=== PATIENT | female | born 1995 | race Caucasian/White ===

== ENCOUNTER 2019-10-04 18:07 | Inpatient (IN) | payer BC, OTHER ==
[~2019-10-04 18:07] MED LIST: Iopamidol 370 76% 100 ML VIAL ONE
[2019-10-04] MEDS ORDERED: Ibuprofen 800 MG TAB ONE (18:16)
[2019-10-04] MEDS ORDERED: Acetaminophen 500 MG TAB ONE ×2 (18:16→18:46)
--- NOTE | 2019-10-04 19:28 | RAD ---
Chest AP view INDICATION: Fever cough and difficulty breathing COMPARISON: None FINDINGS: Lungs: There is rounded airspace consolidation within the right lower lung suspicious for pneumonia. Left lung is clear. Cardiac silhouette: The cardiomediastinal silhouette appears within normal limits. Pulmonary vasculature: Normal Pleural spaces: No pleural effusion or pneumothorax is demonstrated. Upper abdomen: No abnormality seen. Osseous structures: No acute osseous abnormality. Additional findings: None. IMPRESSION: Findings suspicious for right lower lobe pneumonia. Two-view chest radiograph may be helpful for impr ida localization. Recommend radiographic follow-up to resolution.
[2019-10-04] MEDS ORDERED: Azithromycin 500 MG VIAL ONE (20:01)
[2019-10-04] MEDS ORDERED: cefTRIAXone\\ROCEPHIN 2 GM VIAL ONE (20:01)
[2019-10-04] MEDS ORDERED: Sodium Chloride 0.9% 100 ML ONE (20:01)
[2019-10-04 20:31] LABS: Hemoglobin 13.2 g/dL (12.0-16.0); Mean Corpuscular HGB CONC 35.3 g/dL (32.0-36.0); Mean Corpuscular Hemoglobin 31.2 pg (27.0-31.0); Mean Corpuscular Volume 88.2 fL (78.0-98.0); Mean Platelet Volume 7.9 fL (7.4-10.4); Platelet Count 193 thou/uL (130-400); RBC Distribution Width 11.4 % (11.5-14.5); Red Blood Cell (RBC) Count 4.24 mill/uL (4.20-5.40); White Blood Cell (WBC) Count 27.5 thou/uL (4.8-10.8)
[2019-10-04 20:36] LABS: Bilirubin Negative (Negative); Blood, Urine Negative (Negative); Clarity Clear (Clear); Glucose, Urine (Dipstick) Normal (Negative); Ketone, Urine 80 mg/dL (Negative); Leukocyte Negative Leu/uL (Negative); Nitrite Negative (Negative); Protein, Urine (Dipstick) 20 mg/dL (Neg-Trace); Specific Gravity, Urine 1.018 (1.002-1.036); Urobilinogen Normal mg/dL (Less than 2)
[2019-10-04 20:51] LABS: BHCG - Serum Negative (NEGATIVE); Pregs Control Background? CLEAR/WHITE (CLR/WHITE); Pregs Control Bar Appear? YES (CONTROL BAR)
[2019-10-04 20:52] LABS: ALT (SGPT) 11 U/L (8-55); AST (SGOT) 14 U/L (5-34); Alkaline Phosphatase 62 U/L (40-110); Anion Gap 12 mmol/L (10-20); BUN (Urea Nitrogen) 8 mg/dL (7.0-18.7); Bilirubin, Total 0.8 mg/dL (0.2-1.2); CK (CPK) 33 U/L (29-168); Calc. Creatinine Clearance 0 mL/min (70-130); Calcium 9.5 mg/dL (7.8-10.44); Carbon Dioxide 21 mmol/L (22-29); Chloride 104 mmol/L (98-107); Estimated GFR-MDRD 78; Globulin 3.4 g/dL (2.4-3.5); Glucose 111 mg/dL (70-105); Potassium 3.1 mmol/L (3.5-5.1); Protein, Total 7.4 g/dL (6.0-8.3); Sodium 134 mmol/L (136-145)
[2019-10-04 20:53] LABS: Band 27 % (5-11); Lymphocytes 2 % (21-51); MDiff Complete? YES; Monocytes 3 % (0-10); Neutrophil 68 % (42-75)
[2019-10-04] MEDS ORDERED: Ondansetron PF 4 MG/2 ML Vial ONE (21:02)
--- NOTE | 2019-10-04 21:20 | CT ---
CTA Angio Chest W WO Con 10/04/2019 12:00 AM Indication: Chest Pain Technique: Multiple CTA images were obtained of the thorax with IV contrast. 3-D rendering: MIP verónica nstructed images were created and reviewed. Comparison: Chest radiograph dated October 04, 2019 Findings: Pulmonary arteries: No central or segmental pulmonary embolus is evident. Heart and Aorta: Normal appearing. Mediastinum:Normal appearing. No enlarged lymph nodes. Lungs:Airspace consolidation is present within the lateral segment of the right middle lobe. This cor responds to the rounded consolidations suspected within the right lower lung on the prior chest radiograph. Pleural space: Clear. Upper Abdomen: No acute abnormality. Osseous Structures: No acute osseous abnormality. Soft tissues:No abnormality. Other findings:None. Impression: No central or segmental pulmonary embolus. Right middle lobe pneumonia.
[2019-10-05] MEDS ORDERED: Acetaminophen 325 MG TAB PO PRN (00:06)
[2019-10-05] MEDS ORDERED: Dexamethasone 10 MG/ML VIAL ONE (00:14)
--- NOTE | 2019-10-05 01:40 | HP ---
REASON FOR ADMISSION: Cough and shortness of breath. HISTORY OF PRESENT ILLNESS: This is a 24-year-old female patient, who started having cough and with the cough, she had chest pain localized in the retrosternal area and it is only when she takes a deep breath. She also had fevers, chills, and poor appetite, today developed slight shortness of breath and that is why she came to the ER. The patient denies being in contact with anyone with COVID positive. She denies recent travel. Denied loss of smell or taste. In the emergency room, she was found to be tachycardic and her CAT scan did show evidence of pneumonia. PAST MEDICAL HISTORY: The patient does not have any past medical history. PAST SOCIAL HISTORY: She does not smoke. Does not drink alcohol. ALLERGIES: NO KNOWN TO HAVE DRUG ALLERGIES. FAMILY HISTORY: Reviewed, found to be noncontributory. REVIEW OF SYSTEMS: All systems reviewed except the above mentioned, found to be negative. PHYSICAL EXAMINATION: GENERAL: She is awake, alert, and oriented, does not appear in distress. VITAL SIGNS: Her blood pressure is 100/70, heart rate of 104, and saturating 96% on room air. HEENT: Head is nontraumatic and normocephalic. Pupils equal, reactive. Extraocular movements are intact. Nonicteric sclerae. Well-injected conjunctivae. Oral mucosa normal. Nasal mucosa normal. NECK: Supple. No adenopathy. No murmur. Thyroid is not palpable. Trachea is midline. No supraclavicular lymphadenopathy. HEART: S1 and S2, regular. No murmur. No gallop. No friction rubs. No displacement of PMI. LUNGS: Decreased air entry bilaterally. No wheezes or rhonchi. No crackles. Bowel sounds are positive. Nontender abdomen. No hepatosplenomegaly. EXTREMITIES: No lower extremity edema. No cyanosis noted. NEUROLOGIC: Cranial nerves 2 through 12 within normal limits. Normal motor function. Normal sensory function. Normal reflexes. LABORATORY DATA: Blood work shows a sodium 134, potassium of 3.1, bicarb 21, creatinine 0.88, glucose 111. WBC of 27.5, hemoglobin 13.2, platelets of 193, and bands of 27%. Urinalysis does not show any evidence of infection. A CT of the chest shows right middle lobe pneumonia. ASSESSMENT AND PLAN: This is a 24-year-old female patient, presenting with pleuritic chest pain and cough. Her CT scan did show pneumonia. She will be admitted on telemetry since she is tachycardic. We will also hydrate with IV fluids and start her on IV Rocephin and azithromycin. She did already receive a dose in the emergency room, a COVID test was sent and awaiting the results. We will start her on Decadron in case we are dealing with a COVID-associated pneumonia. She did receive her initial dose in the emergency room. We will also start on IV fluids. For deep venous thrombosis prophylaxis, she will be on SCDs. Job ID: [id number]
[2019-10-05 02:15] VITALS: BMI 25.7
[2019-10-05] MEDS ORDERED: Ondansetron PF 4 MG/2 ML Vial IVP PRN (02:33)
[2019-10-05] MEDS ORDERED: Ondansetron ODT 4 MG TAB SL PRN (02:33)
[2019-10-05] MEDS: Sodium Chloride 0.9% 1,000 ML IV SCH ×3 (02:48→20:19)
[2019-10-05 04:39] LABS: #Lymphocytes 0.9 thou/uL (1.20-3.40); #Monocytes 0.4 thou/uL (0.11-0.59); %Basophils 0.1 % (0.0-1.0); %Lymphocytes 3.5 % (21.0-51.0); %Monocytes 1.4 % (0.0-10.0); %Neutrophils 94.9 % (42.0-75.0); Hemoglobin 12.1 g/dL (12.0-16.0); Mean Corpuscular HGB CONC 33.9 g/dL (32.0-36.0); Mean Corpuscular Hemoglobin 30.7 pg (27.0-31.0); Mean Corpuscular Volume 90.5 fL (78.0-98.0); Mean Platelet Volume 8.2 fL (7.4-10.4); Platelet Count 171 thou/uL (130-400); RBC Distribution Width 11.5 % (11.5-14.5); Red Blood Cell (RBC) Count 3.94 mill/uL (4.20-5.40); White Blood Cell (WBC) Count 25.3 thou/uL (4.8-10.8)
[2019-10-05 05:17] LABS: Anion Gap 12 mmol/L (10-20); BUN (Urea Nitrogen) 6 mg/dL (7.0-18.7); Calc. Creatinine Clearance 114 mL/min (70-130); Calcium 8.2 mg/dL (7.8-10.44); Carbon Dioxide 17 mmol/L (22-29); Chloride 112 mmol/L (98-107); Estimated GFR-MDRD 90; Glucose 119 mg/dL (70-105); Potassium 3.7 mmol/L (3.5-5.1); Sodium 137 mmol/L (136-145)
[2019-10-05] MEDS: Dexamethasone 6 MG in Sodium Chloride 0.9% 50 ML IVPB SCH (11:08)
--- NOTE | 2019-10-05 12:10 | PDOC.HOSPP ---
- Subjective Encounter Date: 10/05/19 Encounter Time: 12:07 Subjective: cough, pleuritic chest pain on right - Objective Vital Signs & Weight: Vital Signs (12 hours) Temp Pulse Resp BP Pulse Ox 10/05/19 05:05 97.9 F 89 16 96/56 L 96 10/05/19 01:00 97.8 F 99 18 107/65 98 Weight Weight 145 lb Result Diagrams: 10/05/19 03:59 10/05/19 03:59 Hospitalist ROS - Medication Medications: Active Medications Generic Name Dose Route Start Last Admin Trade Name Freq PRN Reason Stop Dose Admin Sodium Chloride 1,000 mls @ 100 mls/hr 10/05/19 00:15 10/05/19 11:18 Normal Saline 0.9% IV 1,000 mls .Q10H YURY Administration Dexamethasone 6 mg/ Sodium 50.6 mls @ 100 mls/hr 10/05/19 09:00 10/05/19 11: 08 Chloride IVPB 50.6 mls DAILY YURY Administration - Exam General Appearance: awake alert Neck: no JVD Heart: RRR, no murmur Respiratory - other findings: rales over RML Gastrointestinal: soft, non-tender, normal bowel sounds Extremities: no edema Hosp A/P (1) PNA (pneumonia) Code(s): J18.9 - PNEUMONIA, UNSPECIFIED ORGANISM Status: Acute Qualifiers: Pneumonia type: due to Pneumococcus Laterality: right Lung location: middle lobe of lung Qualified Code(s): J13 - Pneumonia due to Streptococcus pneumoniae (2) Pleuritic chest pain Code(s): R07.81 - PLEURODYNIA Status: Acute (3) Leukocytosis Code(s): D72.829 - ELEVATED WHITE BLOOD CELL COUNT, UNSPECIFIED Status: Acute - Plan cultures neg to date cont iv antibx x 72 hrs chest pain improved with steroids
[2019-10-05] MEDS: Azithromycin 250 MG TAB PO SCH (20:18)
[2019-10-05] MEDS: cefTRIAXone\\ROCEPHIN 1 GM in Sodium Chloride 0.9% 100 ML IVPB SCH (20:18)
[2019-10-06] MEDS: Sodium Chloride 0.9% 1,000 ML IV SCH (05:04)
[2019-10-06] MEDS: Dexamethasone 6 MG in Sodium Chloride 0.9% 50 ML IVPB SCH (08:38)
--- NOTE | 2019-10-06 13:50 | PDOC.HOSPP ---
- Subjective Encounter Date: 10/06/19 Encounter Time: 09:45 Subjective: pt up in bed feels a better than yesterday. - Objective Vital Signs & Weight: Vital Signs (12 hours) Temp Pulse Resp BP Pulse Ox 10/06/19 11:30 97.4 F L 92 20 120/66 98 10/06/19 08:37 96.9 F L 80 18 95/58 L 94 L 10/06/19 03:40 98.9 F 84 18 110/61 99 Weight Weight 145 lb I&O: 10/05/19 10/06/19 10/07/19 06:59 06:59 06:59 Intake Total 3800 Balance 3800 Result Diagrams: 10/05/19 03:59 10/05/19 03:59 Hospitalist ROS - Review of Systems Cardiovascular: denies: chest pain, palpitations, orthopnea, paroxysmal noc. dyspnea, edema, light headedness, other Gastrointestinal: denies: nausea, vomiting, abdominal pain, diarrhea, constipation, melena, hematochezia, other Genitourinary: denies: dysuria, frequency, incontinence, hematuria, retention, other - Medication Medications: Active Medications Generic Name Dose Route Start Last Admin Trade Name Freq PRN Reason Stop Dose Admin Azithromycin 500 mg 10/05/19 20:00 10/05/19 20:18 Zithromax PO 500 mg 2000 YURY Administration Ceftriaxone Sodium 1 gm/ 100 mls @ 200 mls/hr 10/05/19 20:00 10/05/19 20:18 Sodium Chloride IVPB 100 mls Q24HR YURY Administration - Exam Neck: negative: supple, symmetric, no JVD, no thyromegaly, no lymphadenopathy, no carotid bruit, JVD Heart: negative: RRR, no murmur, no gallops, no rubs, normal peripheral pulses, irregular, diminshed peripheral pulses, murmur present, II/IV, III/IV Respiratory - other findings: decrease breath sounds to RLL Gastrointestinal: negative: soft, non-tender, non-distended, normal bowel sounds , no palpable masses, no hepatomegaly, no splenomegaly, no bruit, no guarding, no rigidity, tender to palpation, distended, diminished bowl sounds, voluntary guarding Hosp A/P (1) Leukocytosis Code(s): D72.829 - ELEVATED WHITE BLOOD CELL COUNT, UNSPECIFIED Status: Acute (2) PNA (pneumonia) Code(s): J18.9 - PNEUMONIA, UNSPECIFIED ORGANISM Status: Acute Qualifiers: Pneumonia type: due to Pneumococcus Laterality: right Lung location: middle lobe of lung Qualified Code(s): J13 - Pneumonia due to Streptococcus pneumoniae (3) Pleuritic chest pain Code(s): R07.81 - PLEURODYNIA Status: Acute (4) SOB (shortness of breath) Code(s): R06.02 - SHORTNESS OF BREATH Status: Acute - Plan covid negative, she has a pneumonia to her RLL. will continue abx for now. will stop steroids. will check labs in am. she has a significant elevated wbc. possible due to steroids. if she is stable possible discharge in am.
[2019-10-06] MEDS ORDERED: Benzonatate 100 MG CAP PO PRN (20:46)
[2019-10-06] MEDS ORDERED: Enoxaparin Sodium 40 MG/0.4 ML SYRINGE SC SCH (21:00)
[2019-10-06] MEDS: Azithromycin 250 MG TAB PO SCH (21:01)
[2019-10-06] MEDS: cefTRIAXone\\ROCEPHIN 1 GM in Sodium Chloride 0.9% 100 ML IVPB SCH (21:03)
[2019-10-07 05:19] LABS: #Lymphocytes 1.8 thou/uL (1.20-3.40); #Monocytes 0.6 thou/uL (0.11-0.59); #Neutrophils 14.3 thou/uL (1.40-6.50); %Eosinophils 0.1 % (0.0-10.0); %Lymphocytes 10.8 % (21.0-51.0); %Monocytes 3.6 % (0.0-10.0); %Neutrophils 85.6 % (42.0-75.0); Hemoglobin 11.4 g/dL (12.0-16.0); Mean Corpuscular HGB CONC 33.6 g/dL (32.0-36.0); Mean Corpuscular Hemoglobin 30.3 pg (27.0-31.0); Mean Corpuscular Volume 90.1 fL (78.0-98.0); Mean Platelet Volume 8.7 fL (7.4-10.4); Platelet Count 210 thou/uL (130-400); RBC Distribution Width 11.4 % (11.5-14.5); Red Blood Cell (RBC) Count 3.78 mill/uL (4.20-5.40); White Blood Cell (WBC) Count 16.7 thou/uL (4.8-10.8)
[2019-10-07 05:36] LABS: Anion Gap 10 mmol/L (10-20); BUN (Urea Nitrogen) 10 mg/dL (7.0-18.7); Calc. Creatinine Clearance 128 mL/min (70-130); Calcium 8.1 mg/dL (7.8-10.44); Carbon Dioxide 22 mmol/L (22-29); Chloride 111 mmol/L (98-107); Estimated GFR-MDRD Greater than 90; Glucose 112 mg/dL (70-105); Potassium 3.7 mmol/L (3.5-5.1); Sodium 139 mmol/L (136-145)
[2019-10-07 07:45] VITALS: BP 123/82; TEMP 98.3
--- NOTE | 2019-10-07 20:17 | DIS ---
DATE OF ADMISSION: 10/05/2019 DATE OF DISCHARGE: 10/07/2019 DISCHARGE DIAGNOSES: As of the followin. Pneumonia, most likely community acquired. 2. Leukocytosis. 3. Pleuritic chest pain. 4. Shortness of breath. HOSPITAL COURSE: The patient is a 24-year-old female, who initially presented to the hospital with complaints of pleuritic chest pain and shortness of breath. She was ruled out for COVID, COVID test was negative. She underwent a CTA which was negative for PE, however, was noted to have significant right middle lobe pneumonia. At this time, the patient was put on community-acquired pneumonia antibiotics. She continued to improve. Her white count significantly improved from 27.5 to 16.7. At this time, she was discharged home. She felt well. She was able to move around without any difficulties. I have recommended to the patient to follow up with a CAT scan in the next 2 or 3 months to make sure the complete resolution of that area. Her home medications will be her Levaquin 750 for the next 7 days. I have asked her to take probiotics since she has had a history of C difficile in the past. PHYSICAL EXAMINATION: VITAL SIGNS: Temperature 98.3, 73, 15, 97% on room air, 123/82. GENERAL: She is awake, alert, and oriented x3. Does not appear in distress. CV: S1 and S2 present. No murmurs, rubs, or gallops. ABDOMEN: Soft, nontender. Bowel sounds are present x2. Again, she will be discharged home and follow up with her Primary. Job ID: [id number]
--- NOTE | 2019-10-09 07:02 | PQF ---
CLINICAL DOCUMENTATION CLARIFICATION FORM: Dear : Gisselle Parham Date / Time: 10/09/2019 07:01 Please exercise your independent, professional judgment in responding to the clarification form. Clinical indicators are provided on the bottom of this form for your review Please check appropriate box(es): [X ] Sepsis due to PNA [ ] Localized infection without sepsis [ ] Other diagnosis [ ] Unable to determine In addition, please specify: Present on Admission (POA): [ X ] Yes [ ] No [ ] Unable to determine Physician Signature: Date/Time: For continuity of documentation, please document condition throughout progress notes and discharge summary. Thank You. To be completed by CDI/Coding staff for physician review: Present Clinical Indicators - Signs / Symptoms / Labs Results and Location in Medical Record [X] airspace consolidation in present within the right middle lobe Chest Xray 10/03 [X] covid negative PN 10/05 [X] Pneumonia due to streptococcus pneumoniae PN 10/05 [X] Vital Signs: Temp=98.8 Pulse=99 Respi=18 BP=96/56 Vital Signs 10/04 [X] Labs WBC: 10/03=27.5 10/0463=770 10/06=16.7 Labs 10/03 [X] Labs Lactate: 10/03=0.9 Labs 10/03 [X] Blood culture:coagulase neg staphylococcus Collected 10/03 Present Risk Factors Results and Location in Medical Record [X] 24 years old female HP 10/04 [X] PNA HP 10/04 Present Treatments Results and Location in Medical Record [X] Chest Xray Collected [X] IVF HP 10/04 [X] Covid swab HP 10/04 [X] Rocephin 2gm IV MAR 10/03 [X] Azithromycin 500mg oral JUN 02 [X] Levaquin 750mg Oral JUN 02 [X] Blood culture Collected 10/03 CDS/Nursing Secretary Signature: Duc Sarmiento Phone #: [phone] Date/Time:10/09/2019 07:01 This is a permanent part of the Medical Record [facility]
--- NOTE | 2019-10-09 07:17 | PQF ---
CLINICAL DOCUMENTATION CLARIFICATION FORM: Dear : Gisselle Parham Date / Time: 10/09/2019 07:06 Please exercise your independent, professional judgment in responding to the clarification form. Clinical indicators are provided on the bottom of this form for your review NOT SURE WHAT I HAVE TO CLARIFY Please check appropriate box(es): [ ] Associated Diagnosis:Hyponatremia [ ] Not clinically significant laboratory findings [ ] Other diagnosis [ ] Unable to determine Physician Signature: Date/Time: For continuity of documentation, please document condition throughout progress notes and discharge summary. Thank You. To be completed by CDI/Coding staff for physician review: Present Clinical Indicators - Signs / Symptoms / Labs Results and Location in Medical Record [X] Labs Sodium: 10/0335=337 10/0466=771 10/0670=899 Labs 10/03 [X] Vital Signs: Temp=98.8 Pulse=99 Respi=18 BP=96/56 Vital Signs 10/04 [X] report fatigue ED Notes 10/03 [X] report chest pain ED Notes 10/03 Present Risk Factors Results and Location in Medical Record [X] 24 years old female HP 10/04 [X] PNA PN 10/05 Present Treatments Results and Location in Medical Record [X] Laboratory Monitoring Collected 10/03 [X] Sodium Chloride 1000ml I MAR 10/04 [X] IVF HP 10/04 CDS/C 13 Catapult Operator Signature: Duc Sarmiento Phone #: ext [phone] Date/Time: 10/09/2019 07:06 This is a permanent part of the Medical Record [facility]
== END 2019-10-07 10:51 | disposition home or self-care (01) | DRG 871 ==
LOC: ERS 18:07 → 2NO 10-05 02:06 → OBSVTOIN 10-05 02:06 → T4-B 10-06 20:01
PROVIDERS: ADMIT Internal Medicine; ATTEND Internal Medicine
DX: A41.9 Sepsis, unspecified organism (principal); J13 Pneumonia due to Streptococcus pneumoniae; Z20.828 Contact with and (suspected) exposure to other viral communicable diseases; Z87.01 Personal history of pneumonia (recurrent); Z88.1 Allergy status to other antibiotic agents; Z88.8 Allergy status to other drugs, medicaments and biological substances
CPT/HCPCS: 36415; 71045; 71275; 80048; 80053; 81003; 82550; 83605; 84484; 84703; 85025; 87040; 87149; 93005; 94760; 96361; 96365; 96366; 96367; 96375; G0378; J0456; J0696; J1100; J2405; J3490; Q9967; U0002